=== PATIENT | female | born 1960 | race Caucasian/White ===

== ENCOUNTER 2019-01-16 15:27 | Outpatient (CLI) | payer OTHER, SELFPAY ==
[2019-01-16 16:02] LABS: Hemoglobin A1C 5.5 % (4.5-6.2)
[2019-01-16 16:48] LABS: Anion Gap 6.6 mmol/L (3-11); BUN 20 mg/dL (7-18); CO2 35.4 mmol/L (21.0-32.0); CREATININE 0.89 mg/dL (0.55-1.02); Calcium 9.6 mg/dL (8.5-10.1); Chloride 95 mmol/L (98-107); Glucose 90 mg/dL (70-100); Potassium 3.8 mmol/L (3.5-5.1); Sodium 137 mmol/L (136-145)
== END 2019-01-16 15:47 ==
PROVIDERS: PCP Family Medicine; Visit Provider Family Medicine
DX: I10 Essential (primary) hypertension (principal); E66.9 Obesity, unspecified
CPT/HCPCS: 36415; 80048; 83036

== ENCOUNTER 2019-02-12 16:14 | Outpatient (REF) | payer OTHER, SELFPAY ==
--- NOTE | 2019-02-12 15:00 | PAPFT_PTH ---
PATIENT: Shandra Garcia LOC: [facility] U#:[id number] AGE/SX: 58/F ROOM: RE02/12/[address]: Carolin Lerner : 1960 BED: DIS: 02/12/2019 SPEC #: [id number] RECD: 02/13/19 12:50 STATUS: MARIANO REMary Alice #: [id number] MIRTHA: 02/12/19 15:[address]: Carolin Lerner DEPT: [facility] Cytology RECD BY: Jacki Levy Tissues: 1 - CX/ENDOCX FOR PAP SMEARS Procedures: PAP THIN PREP/UVM Screening HPV DNA PROBE Comments: [id number]
== END 2019-02-12 16:34 ==
LOC: NCHCN 16:14
PROVIDERS: PCP Family Medicine; Visit Provider Family Medicine
DX: Z12.4 Encounter for screening for malignant neoplasm of cervix (principal); Z11.51 Encounter for screening for human papillomavirus (HPV); Z00.00 Encounter for general adult medical examination without abnormal findings
CPT/HCPCS: 88142; 87624

== ENCOUNTER 2020-06-30 14:21 | Outpatient (REF) | payer OTHER, SELFPAY ==
[2020-06-30 21:45] LABS: Anion Gap 7.9 mmol/L (3-11); BUN 18 mg/dL (7-18); CO2 32.1 mmol/L (21.0-32.0); CREATININE 1.17 mg/dL (0.55-1.02); Calcium 11.3 mg/dL (8.5-10.1); Chloride 94 mmol/L (98-107); Estimated GFR 47.68 (mL/min/1.73m2); Glucose 103 mg/dL (74-106); Sodium 134 mmol/L (136-145)
[2020-06-30 22:05] LABS: Hemoglobin A1C 5.2 % (<5.7)
== END 2020-06-30 14:41 ==
LOC: NCHCN 14:21
PROVIDERS: PCP Family Medicine; Referring Provider Family Medicine; Visit Provider Family Medicine
DX: I10 Essential (primary) hypertension (principal); E66.9 Obesity, unspecified
CPT/HCPCS: 80048; 83036

== ENCOUNTER 2022-02-20 15:25 | Emergency (ER) | payer OTHER, SELFPAY ==
[2022-02-20 15:18] VITALS: BP 149/84; PULSE 100; RESP 18; TEMP 36.6; O2SAT 96
--- NOTE | 2022-02-20 15:48 | ED.GENADUL_ITS ---
Discharge Plan Disposition Patient Disposition: HOME Condition: Improving Discharge Details Chief Complaint: Epistaxis Clinical Impression: Epistaxis Primary Care Provider: Carolin Lerner ED Provider: Tello Santoyo Home Meds and New Rx's Prescriptions: No Action potassium chloride 10 mEq capsule, extended release 10 meq PO DAILY 0RF chlorthalidone 25 mg tablet 25 mg PO DAILY 0RF montelukast 10 mg tablet 10 mg PO DAILY 0RF fluticasone propion-salmeterol [Wixela Inhub] 100-50 mcg/dose blister with device INHALATION DAILY 0RF losartan 100 mg tablet 100 mg PO DAILY 0RF multivitamin Capsule 1 cap PO DAILY 0RF magnesium Tablet 1 tab PO DAILY 0RF Discharge Instructions Instructions: Nosebleed (ED) Additional Instructions: At home if you develop nosebleed again please use Afrin spray as directed, apply nasal clamp for 20 to 30 minutes, if you notice brisk bleeding down the back of your throat or you develop lightheadedness chest pain shortness of breath unimproved bleeding or other abnormal symptoms please return to the emergency department. Medical Decision Making 61-year-old female nontraumatic epistaxis left naris anterior in nature, now resolving after mechanical pressure with nasal clamp, no postnasal bleeding, likely vasovagal episode during nasal manipulation at urgent care, normotensive, slightly tachycardic, pink mucosa conjunctiva, warm well perfused extremities, normal mentation. Given persistent bleeding since 10 AM now resolving, as well as tachycardia and prior likely basal episode, will obtain basic labs to assess for anemia, will provide fluid bolus, will administer localized TXA and Afrin. Likely discharge home with home care instructions and return precautions. No evidence of posterior bleed. 17: 28 resting comfortably no acute distress hemodynamically stable, epistaxis has resolved, Afrin and TXA applied prophylactically. Home care instructions and strict return precautions given. HPI General Date/Time Provider Initiated Documentation: 02/20/22 15:38 . HPI Narrative: 61-year-old female presents with atraumatic epistaxis since this morning, went to urgent care, urgent care provider attempted to perform intranasal procedure questionable whether this was local anesthetic or cautery, patient felt lightheaded and had a brief drop in her blood pressure during this event, came back to normal without intervention, no chest pain or shortness of breath. Patient denies blood thinner use. Believe that the bleeding has stopped. [place] some trickling down her throat however that is no longer happening, believes it is only coming from her left naris anteriorly. Related Data Home Medications Medication Instructions Recorded Confirmed chlorthalidone 25 mg tablet 25 mg PO DAILY 02/20/22 02/20/22 fluticasone 100 mcg-salmeterol 50 inh INHALATION DAILY 02/20/22 mcg/dose blistr powdr for inhalation (Wixela Inhub) losartan 100 mg tablet 100 mg PO DAILY 02/20/22 02/20/22 magnesium 1 tab PO DAILY 02/20/22 02/20/22 montelukast 10 mg tablet 10 mg PO DAILY 02/20/22 02/20/22 multivitamin 1 cap PO DAILY 02/20/22 02/20/22 potassium chloride 10 mEq 10 meq PO DAILY 02/20/22 02/20/22 capsule,extended release Allergies Allergy/AdvReac Type Severity Reaction Status Date / Time Penicillins Allergy Unverified 02/20/22 15:24 nickel AdvReac Other (See Unverified 02/20/22 15:24 Comment) General Stated Complaint: Epistaxis CRIS: 3 Review of Systems Narrative: Review of Systems Constitutional: negative Eyes: negative ENT: Epistaxis Cardiovascular: negative Respiratory: negative Gastrointestinal: negative : negative Musculoskeletal: negative Skin: negative Neurologic: negative Psych: negative PFSH All Active Problems (Updated 02/20/22 @ 17:30 by Tello Santoyo MD) Epistaxis (Acute) Social History Smoking/Tobacco Use Status: Never Smoking risk assessment performed?: Yes Alcohol Intake: current Alcohol Intake frequency: 0-2 drinks per day Alcohol type: beer and hard liquor Substance use type: does not use Do you feel safe at home: Yes Do you feel safe in your relationship?: Yes Exam Narrative Exam Narrative: Physical Examination General: alert, awake, cooperative, resting comfortably, no acute distress HEENT: No postnasal epistaxis, normal oropharynx clamp in place over bilateral naris, pink conjunctiva normocephalic, atraumatic; PERRL, EOM intact, conjunctiva normal; no nasal discharge; moist mucous membranes, oral and pharyngeal mucosa normal, tolerating secretions Neck: supple, trachea midline; full ROM Chest: normal to inspection Respiratory: normal respiratory effort, speaking in full sentences, clear to auscultation, no wheezing, rales or rhonchi Cardiac: Slight tachycardia, regular rhythm, S1S2 intact, no murmurs rubs or gallops GI: abdomen soft, non-tender, non-distended; no palpable mass or hepatosplenomegaly Skin: no lesions, rashes or trauma appreciated, normal skin color normal mucous membranes Neuro: AAOx3, normal speech, moving all extremities Extremities: Warm well perfused Psych: Appropriate mood and affect Course Vital Signs Vital signs: Vital Signs Temperature 36.6 C 02/20/22 15:18 Pulse 100 H 02/20/22 15:18 Respiratory Rate 18 02/20/22 15:18 Blood Pressure 149/84 H 02/20/22 15:18 Pulse Oximetry 96 02/20/22 15:18 Temperature 36.6 C 02/20/22 15:18 Temperature Source Temporal Artery Scan 02/20/22 15:18 Pulse 100 H 02/20/22 15:18 Respiratory Rate 18 02/20/22 15:18 Respiratory Effort 02/20/22 15:23 Blood Pressure 149/84 H 02/20/22 15:18 Blood Pressure Position Supine 02/20/22 15:18 Pulse Oximetry 96 02/20/22 15:18 Oxygen Delivery Method Room Air 02/20/22 15:18 Oxygen Flow Rate 0 02/20/22 15:18 Pain Level 0 02/20/22 15:18 PAWSS Have you Been Recently Intoxicated or Drunk Within the Last 30 days?: Yes Have you Ever Experienced Previous Episodes of Alcohol Withdrawal?: No Have you ever Experienced Withdrawal Seizures?: No Have you ever Experienced Delirium Tremens(DT)s?: No Have you ever undergone Alcohol Rehabilitation Treatment (i.e, inpt ot outpatient treatment programs)?: No Have you ever Experienced Blackouts?: No Have you ever Combined Alcohol with other Downers within the last 90 days?: No Have you ever Combined Alcohol with any other Substance of Abuse during the last 90 days?: No Positive Blood Alcohol level on Presentation? [PCS.BAL]: No Evidence of Increased Autonomic Activity (i.e. HR>120, tremor, sweating, agitation, nausea)?: No Result: 1
[2022-02-20] MEDS: Normal Saline 1,000 ML 1000 ML IV (15:57)
[2022-02-20 16:01] LABS: Abs Immature Grans 0.01 10^3/uL (0.0-0.06); Absolute Basophil Count 0.04 10^3/uL (0.0-0.2); Absolute Eosinophil Count 0.14 10^3/uL (0.0-0.7); Absolute Lymphocyte Count 1.44 10^3/uL (1.2-3.4); Absolute Monocyte Count 0.53 10^3/uL (0.1-0.8); Absolute Neutrophil Count 3.33 10^3/uL (1.2-6.7); Basophils % 0.7; Eosinophils % 2.6; HCT 39.1 % (36.0-46.0); HGB 13.6 g/dL (11.2-15.7); Immature Grans % 0.2; Lymphocytes % 26.2; MCH 34.7 pg (27.0-33.0); MCHC 34.8 % (32.0-36.0); MCV 99.7 fL (80-95); MPV 11.4 fL (8.0-11.0); Monocytes % 9.7; Neutrophils % 60.6; Platelet Count 184 10^3/uL (130-400); RBC 3.92 10^6/uL (3.93-5.22); RDW 11.9 % (11.7-14.6); RDW-SD 43.2 fL; WBC 5.49 10^3/uL (4.4-10.8)
[2022-02-20 16:18] LABS: ALT 87 U/L (14-59); AST 77 U/L (15-37); Alkaline Phosphatase 65 U/L (46-116); Anion Gap 8.2 mmol/L (3-11); BUN 21 mg/dL (7-18); CO2 30.8 mmol/L (21.0-32.0); Calcium 9.4 mg/dL (8.5-10.1); Chloride 92 mmol/L (98-107); Estimated GFR 56.75 (mL/min/1.73m2); Glucose 124 mg/dL (74-106); Potassium 3.2 mmol/L (3.5-5.1); Sodium 131 mmol/L (136-145); Total Protein 8.1 g/dL (6.4-8.2)
[2022-02-20] MEDS: Oxymetazolone 0.05% SPRAY 15 ML BTL NS (17:09)
[2022-02-20] MEDS: Tranexamic Acid 1,000 MG/10 ML VIAL 500 MG NS (17:10)
[2022-02-20 17:38] VITALS: BP 135/86; PULSE 90; RESP 18; TEMP 36.9; O2SAT 97
== END 2022-02-20 17:38 | disposition home or self-care (01) ==
PROVIDERS: Emergency Provider Emergency Medicine; PCP Family Medicine
DX: R04.0 Epistaxis (principal)
CPT/HCPCS: 30901; 36415; 80053; 85025

== ENCOUNTER 2022-05-19 20:42 | Outpatient (REF) | payer OTHER, SELFPAY ==
[2022-05-19 18:49] LABS: ALT 67 U/L (14-59); AST 74 U/L (15-37); Albumin 4.2 g/dL (3.4-5.0); Alkaline Phosphatase 73 U/L (46-116); Anion Gap 10.2 mmol/L (3-11); BUN 12 mg/dL (7-18); CO2 29.8 mmol/L (21.0-32.0); Calcium 9.7 mg/dL (8.5-10.1); Calculated LDL 138 mg/dL (<100); Chloride 89 mmol/L (98-107); Cholesterol 285 mg/dL (<200); Estimated GFR 56.75 (mL/min/1.73m2); Glucose 91 mg/dL (74-106); HDL Cholesterol 119 mg/dL (40-60); Potassium 3.3 mmol/L (3.5-5.1); Sodium 129 mmol/L (136-145); TSH (W/Ref FT4) 1.34 uIU/mL (0.36-3.74); Total Protein 8.1 g/dL (6.4-8.2); Triglyceride 144 mg/dL (<150)
== END 2022-05-19 20:43 | disposition home or self-care (01) ==
LOC: NCHCN 20:42
PROVIDERS: PCP Family Medicine; Visit Provider Family Medicine
DX: E87.1 Hypo-osmolality and hyponatremia (principal); R79.89 Other specified abnormal findings of blood chemistry; R63.4 Abnormal weight loss; Z13.220 Encounter for screening for lipoid disorders
CPT/HCPCS: 80053; 80061; 84443

== ENCOUNTER 2022-07-04 17:36 | Outpatient (REF) | payer OTHER, SELFPAY ==
[2022-07-04 15:11] LABS: Iron 183 ug/dL (50-170); Total Iron Binding Capacity 331 ug/dL (250-450); Transferrin Sat 55 % (15-50)
[2022-07-04 15:14] LABS: ALT 37 U/L (14-59); AST 49 U/L (15-37); Albumin 3.8 g/dL (3.4-5.0); Alkaline Phosphatase 69 U/L (46-116); Anion Gap 12.1 mmol/L (3-11); BUN 10 mg/dL (7-18); CO2 27.9 mmol/L (21.0-32.0); CREATININE 0.8 mg/dL (0.55-1.02); Calcium 9.6 mg/dL (8.5-10.1); Chloride 100 mmol/L (98-107); Estimated GFR 84.82 (mL/min/1.73m2); Ferritin 771 ng/mL (8-252); Glucose 88 mg/dL (74-106); Potassium 4.2 mmol/L (3.5-5.1); Sodium 140 mmol/L (136-145); Total Protein 7.8 g/dL (6.4-8.2)
[2022-07-05 08:30] LABS: HBs Antibody, Quant <3.1 mIU/mL (See Note); Hepatitis B Surface Ab Negative (See Note)
[2022-07-05 09:57] LABS: Hep A Total Ab w Rflx IgM Positive (Negative)
[2022-07-05 10:09] LABS: Hepatitis A Antibody IgM Negative (Negative); Hepatitis B Core Antibody Negative (Negative); Hepatitis B surface Ag Negative (Negative); Hepatitis C Ab w Rflx HCV PCR Negative (Negative)
== END 2022-07-04 17:37 | disposition home or self-care (01) ==
LOC: NCHCN 17:36
PROVIDERS: PCP Family Medicine; Visit Provider Family Medicine
DX: R63.4 Abnormal weight loss (principal); R74.8 Abnormal levels of other serum enzymes; Z11.59 Encounter for screening for other viral diseases
CPT/HCPCS: 80053; 86704; 86706; 86709; 86803; 87340; 82728; 83540; 83550

== ENCOUNTER 2022-07-13 21:17 | Outpatient (REF) | payer OTHER, SELFPAY ==
[2022-07-18 22:51] LABS: Result Summary NEGATIVE; Specimen WB Whole Blood
== END 2022-07-13 21:18 | disposition home or self-care (01) ==
LOC: NCHCN 21:17
PROVIDERS: PCP Family Medicine; Visit Provider Family Medicine
DX: R74.8 Abnormal levels of other serum enzymes (principal); R78.89 Finding of other specified substances, not normally found in blood
CPT/HCPCS: 81256